=== PATIENT | male | born 1960 | race Hispanic/Latino ===

== ENCOUNTER 2019-04-23 22:34 | Emergency (ER) | payer BC ==
[2019-04-23] MEDS ORDERED: LIDOCAINE HCL-MPF 2% 5ML VIAL ONE (22:41)
== END 2019-04-23 23:38 | disposition home or self-care (01) ==
LOC: EDH 22:34
DX: T16.1XXA Foreign body in right ear, initial encounter (principal); X58.XXXA Exposure to other specified factors, initial encounter; Y93.89 Activity, other specified; Y92.098 Other place in other non-institutional residence as the place of occurrence of the external cause; Y99.8 Other external cause status
CPT/HCPCS: 99283; J3490